=== PATIENT | female | born 1990 | race Hispanic/Latino ===

== ENCOUNTER 2018-12-27 09:41 | Day surgery (SDC) | payer OTHER ==
--- NOTE | 2018-12-27 10:45 | PDOC.FPROB ---
FMR OB H&P: HPI - History of Present Illness Chief Complaint: Elevated BP's Indentification: 28 y/o PPD#7 s/p of IUFD @ 27w6d History of Present Illness: Fetus had developed hydrops fetalis and findings not compatible with life. On Tuesday12/19/18 the patient was having elevated BP's and the FHT's were category 3. 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 Due to the anomalies the decision was made to transfer to [place] and there was IUFD during transport. Induction was performed and the patient delivered on 12/20/18 via . She was discharged from the hospital on PPD#3 on Nifedipine XL 60mg BID. She was seen for a post- visit at clinic and was found to have BP's with the systolic in the 180s-190s. The patient was asymptomatic at that time and presented for evaluation of this. She was unable to come on that day, so she is presenting now. She denies any vision changes, headache, SOB, chest pain, RUQ pain, swelling. She reports her pain is well controlled. Denies any fevers, chills. She checks her BP at home and it has been 120s-130s/70s-80s. She reports compliance with medications. Primary Care Physician: Dr. 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: Denies any h/o STI's or abnormal paps - Surgical History Sx History: Denies - Social History Social History: Denies tobacco, EtOH, or drug use - Family History Family History: Father - DM2 FMR OB H&P: Medications - Current Home Medications: Medication Instructions Recorded Confirmed Type NIFEdipine [Procardia XL] 60 mg PO BID 12/27/18 12/27/18 History Allergies/Adverse Reactions: Allergies Allergy/AdvReac Type Severity Reaction Status Date / Time No Known Allergies Allergy Verified 12/19/18 14:06 FMR OB H&P: ROS - Review of Systems General: denies: fever/chills, fatigue Eyes: denies: vision changes, double vision, scotomas ENT: denies: nasal congestion, rhinorrhea Cardiovascular: denies: chest pain, edema, orthopnea Respiratory: denies: cough, shortness of breath Gastrointestinal: denies: abdominal pain, nausea, vomiting, diarrhea Genitourinary (Female): denies: dysuria, hematuria Musculoskeletal: denies: pain, swelling Neurologic: denies: numbness, weakness Integumentary: denies: itching, rash Hematologic/Lymphatic: denies: prolonged or excessive bleeding, enlarged lymph nodes Psychological: denies: depression, anxiety FMR OB H&P: Vital Signs - Maternal Vital signs: BP 122/67 HR 74 RR 15 [facility]MR OB H&P: Physical Exam - Physical Exam General: NAD, awake, alert and oriented HEENT: EOMI, MMM, conjunctiva clear, grossly normal vision, grossly normal hearing Neck: supple, no LAD Heart: RRR, normal S1/S2, no murmurs/rubs/gallops, pulses present, no edema General: CTAB, no respiratory distress, good air movement, no rales/rhonchi, no wheezing Abdomen: soft, non-tender, bowel sound present Neurological: cranial nerves II through XII intact, no clonus, no focal deficit Skin: good tugor, capillary refill <2 seconds Lymphatic: no unusual bruising or bleeding, no purpura Psychiatric: intact recent and remote memory, good judgement and insight FMR OB H&P: A/P - Problem List (1) Pre-eclampsia, severe, delivered Status: Acute Code(s): O14.14 - SEVERE PRE-ECLAMPSIA COMPLICATING CHILDBIRTH Assessment and Plan: Patient with what appeared to be Mirror Syndrome at the end of her , was discharge home with Nifedipine XL 60mg BID. s/p 24 hours magnesium -BP's at home well controlled -BP's in office were 180s-190s. -Today BP appears controlled and patient asymptomatic -Will monitor BP's for 1-2 hours and if remain controlled will discharge home with instructions to continue nifedipine. Disposition: Monitor BP's on L&D for 1-2 hours Discussion: Date/Time: 12/27/18 [id number] This H&P was discussed with Dr. Byers who agrees with the above documentation and plan. Signature: Stephanie Borden MD, PGY-2 Addendum - Attending - Attending Attestation Date/Time: 12/28/18 [id number] I personally evaluated the patient and discussed the management with Dr. Borden I agree with the History, Examination, Assessment and Plan documented above with any addition or exceptions noted below. Vitals signs reviewed and wnl. PT to continue procardia xl60mg bid as prescribed.
== END 2018-12-27 11:40 | disposition home or self-care (01) ==
LOC: L&D/OP 09:41
PROVIDERS: ATTEND Obstetrics & Gynecology
DX: O99.89 Other specified diseases and conditions complicating pregnancy, childbirth and the puerperium (principal); R03.0 Elevated blood-pressure reading, without diagnosis of hypertension; O24.13 Pre-existing type 2 diabetes mellitus, in the puerperium; E11.9 Type 2 diabetes mellitus without complications; Z79.84 Long term (current) use of oral hypoglycemic drugs

== ENCOUNTER 2023-03-08 07:38 | Day surgery (SDC) | payer BC ==
[2023-03-07 11:25] VITALS: BMI 27.9
[~2023-03-08 07:38] MED LIST: EPINEPHrine 0.3 MG in Ophthalmic Irrigation Solution 500 ML IRR SCH
[2023-03-08] MEDS ORDERED: Cyclopentolate W/ Phenylephrin 40 DROP/2 ML BOT ONE (08:13)
[2023-03-08] MEDS ORDERED: Midazolam HCl 2 mg/2 ml Vial ONE (09:14)
[2023-03-08] MEDS ORDERED: fentaNYL 50 mcg/mL 1 mL Vial ONE (09:14)
[2023-03-08] MEDS ORDERED: Triamcinolone 40 MG/ML VIAL ONE (09:17)
[2023-03-08] MEDS ORDERED: Lidocaine 1% PF 5 ML VIAL ONE (09:17)
[2023-03-08] MEDS ORDERED: CEFAZOLIN 1 GM VIAL ONE (09:17)
[2023-03-08] MEDS ORDERED: Maxitrol 0.1% Opth Oint 3.5 GM TUBE ONE (09:17)
[2023-03-08] MEDS ORDERED: PROPOFOL 200 MG/20 ML VIAL ONE (09:17)
[2023-03-08] MEDS ORDERED: Bupivacaine 0.75% 10 ML VIAL ONE (09:17)
[2023-03-08] MEDS ORDERED: Lidocaine 4% PF 5 ML AMP ONE (09:17)
== END 2023-03-08 11:00 | disposition home or self-care (01) ==
LOC: SDC 07:38
PROVIDERS: ATTEND Ophthalmology Retina Specialist
PROC: 08T53ZZ Resection of Left Vitreous, Percutaneous Approach (ICD-10-PCS; principal; 2023-03-08)
DX: H43.12 Vitreous hemorrhage, left eye (principal); E11.3592 Type 2 diabetes mellitus with proliferative diabetic retinopathy without macular edema, left eye
CPT/HCPCS: J0171; J0690; J2250; J2704; J3010; J3301; J3490